=== PATIENT | female | born 1970 | race Two or more races ===

== ENCOUNTER 2023-07-02 10:50 | Emergency (ER) | payer BC, SELFPAY ==
[2023-07-02 10:52] VITALS: BP 161/98
--- NOTE | 2023-07-02 11:27 | ED.GENMED ---
History of Present Illness
<Dorothea Rico PA-C - Last Filed: 07/02/23 11:43>
General
Chief Complaint: Skin Problem
Time Seen by Provider: 07/02/23 11:14
<Alok Paredes DO - Last Filed: 07/02/23 11:39>
General
Source: patient
Travel History
Have you had any contact with someone who has COVID-19?: No
Do you have any symptoms of coronavirus? Fever > 100 degrees, chills, cough, shortness of breath, sore throat, loss of taste or smell, muscle aches, or headache?: No
History of Present Illness
History of Present Illness:
52-year-old female presents to the emergency room complaining of pain, burning and discharge and the pubic hair region. Patient used a cream to remove hair there. Newly following she had significant pain. Following the onset of the pain the
patient used a antifungal cream which she had been prescribed for a rash on her left forearm.
<DO Tia Choi Last Filed: 07/02/23 11:39>
Physical Exam
Physical Exam:
General: Awake, Alert, Oriented X3. No acute distress.
Vitals: unremarkable
Head: Atraumatic
Eyes: Pupils equal, EOMI
Abd: Soft, Nontender, No pulsatile mass
Genitalia: Not examined due to patient's latter day believes
Neuro: Grossly nonfocal
Skin: Warm, dry, no rash, rash noted left forearm consistent with ringworm
Course
<Dorothea Rico PA-C - Last Filed: 07/02/23 11:43>
Vital Signs
Initial and Last Documented VS:
Initial Vital Signs
Temp Pulse Resp BP Pulse Ox
99.5 F 95 16 161/98 100
07/02/23 10:52 07/02/23 10:52 07/02/23 10:52 07/02/23 10:52 07/02/23 10:52
Last Documented Vital Signs
Temp Pulse Resp BP Pulse Ox
99.5 F 95 16 161/98 100
07/02/23 10:52 07/02/23 10:52 07/02/23 10:52 07/02/23 10:52 07/02/23 10:52
<Alok Paredes DO - Last Filed: 07/02/23 11:39>
Vital Signs
Initial and Last Documented VS:
Initial Vital Signs
Temp Pulse Resp BP Pulse Ox
99.5 F 95 16 161/98 100
07/02/23 10:52 07/02/23 10:52 07/02/23 10:52 07/02/23 10:52 07/02/23 10:52
Last Documented Vital Signs
Temp Pulse Resp BP Pulse Ox
99.5 F 95 16 161/98 100
07/02/23 10:52 07/02/23 10:52 07/02/23 10:52 07/02/23 10:52 07/02/23 10:52
<DO Tia Choi Last Filed: 07/02/23 11:39>
MDM/Problems Addressed
Differential Diagnosis Includes:
Contact dermatitis, cellulitis, fungal dermatitis
MDM/Problems Addressed:
Patient's history is highly suggestive of a chemical dermatitis secondary to chemical depilatory agent. I hope will examine the patient to see if the findings are consistent with his history. Patient understands that ideally I would also evaluate
her but given her latter day believes I understand the limitations.
<Alok Paredes DO - Last Filed: 07/02/23 11:39>
*Pulse Oximetry
Patient hypoxic: no
*Critical Care Note
Total Time (30-74mins, 75-104mins- exclusive of procedures): Not Applicable
<Dorothea Rico PA-C - Last Filed: 07/02/23 11:43>
Update Note
Update Note:
External exam performed by Dorothea Rico PA-C:
Genitourinary exam: 5 cm by 3 cm erythematous patch on the pubic mound with few scattered pustules, no skin peeling, no ulcerations
<Alok Paredes DO - Last Filed: 07/02/23 11:39>
-
Portions of this chart may have been created with voice recognition software.� Occasional wrong word or��sound alike� substitutions may have occurred due to the inherent limitations of voice recognition software.
Discharge Plan
Departure
Patient Disposition: Home (Routine Discharge)
Date of Disposition: 07/02/23
Time of Disposition: 11:28
Patient with high blood pressure during this ER visit?: Yes
Condition: Good
Discharge Problem:
Contact dermatitis
Instructions: Contact Dermatitis (DC)
Interventions
Interventions:
*Risk Screen - Suicide Last Done: 07/02/23 10:52
*General Assessment Last Done: 07/02/23 10:52
*Neglect/Abuse Screening Last Done: 07/02/23 10:52
== END 2023-07-02 11:49 | disposition home or self-care (01) ==
LOC: EMR 10:50
PROVIDERS: EMERGENCY PHYSICIAN Emergency Medicine
DX: L25.1 Unspecified contact dermatitis due to drugs in contact with skin (principal); T49.95XA Adverse effect of unspecified topical agent, initial encounter
CPT/HCPCS: 99282